=== PATIENT | male | born 1970 | race Caucasian/White ===

== ENCOUNTER 2016-08-13 20:03 | Emergency (ER) | payer MEDICAID, MEDICARE ==
[~2016-08-13] VITALS: Ht 165.1 cm; Wt 86.3 kg
[~2016-08-13 20:03] MED LIST: ASPI500T8 PO; ATEN25TA PO; CALC-72 PO; CALC0.257 PO; CELE200C PO; CELE50CA PO; CHOL500050 PO; ENOX40DI8 SUBQ; HYDR25TA4 PO; LEVO750T9 PO; METH750T3 PO; OXYC1TAB24 PO; flaxseed oil
[2016-08-13 20:04] VITALS: BP 152/90; PULSE 88; RESP 20; O2SAT 96
[2016-08-13 20:21] LABS: BASOPHILS % (AUTO) 0.3 % (0-3); EOSINOPHILS % (AUTO) 3.2 % (0-5); MONOCYTES % (AUTO) 12.1 % (4-12); Mean Corpuscular Hemoglobin 32.3 pg (27.0-35.0); Mean Corpuscular Volume 90.5 fL (81-100); NEUTROPHILS % (AUTO) 54.2 % (40-74); Platelet Count 141 bil/L (150-400)
[2016-08-13 20:47] LABS: TROPONIN T < 0.010 ug/L (0.0-0.011)
--- NOTE | 2016-08-13 21:09 | ED.REPORT ---
HPI-Chest Pain 40 and Over Date of Service Aug 13, 2016 ED Provider: Jerry Dominguez MD 46 year old male with a history of cardiac catheterization, GERD, HTN, and family history of MD on his father's side presents to the ER via EMS complaining of months of tight, substernal chest pain, worsening tonight with pain radiating down his left arm while he was eating around 19:00. Pain is exacerbated with deep breaths. Associated symptom of diaphoresis, and dry cough. Patient denies nausea, vomiting, and diarrhea. Nursing Notes Stated Complaint: CHEST PAIN Chief Complaint: Chest Pain Nursing Notes Reviewed: Yes Allergies: Coded Allergies: Sulfa (Sulfonamide Antibiotics) (Verified Allergy, Severe, seizure, ) Scheduled ([flaxseed oil]) 1,000 MG DAILY Aspirin EC (Aspirin EC) 500 Mg Tablet.dr 325 MG PO BID Atenolol (Atenolol) 25 Mg Tablet 25 MG PO DAILY Calcitriol (Rocaltrol) 0.25 Mcg Capsule 0.5 MCG PO DAILY Calcium Carbonate/Vitamin D3 (Calcium 500 + Vit D 200 Tablet) 1 Each Tablet 1 EACH PO TID Celecoxib (Celebrex) 50 Mg Capsule 50 MG PO DAILY Celecoxib (Celebrex) 200 Mg Capsule 200 MG PO DAILY 200 mg daily for 14 days for 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 Cholecalciferol (Vitamin D3) (Vitamin D3) 50,000 Unit Capsule 50,000 UNIT PO WEEKLY Enoxaparin Sodium (Enoxaparin Sodium) 40 Mg/0.4 Ml Syringe 40 MG SUBQ Q24 Lovenox 40 mg subcutaneous daily for 18 days. ASA 325 mg EC by mouth twice a day for additional 3 weeks. Hydrochlorothiazide (Hydrochlorothiazide) 25 Mg Tablet 25 MG PO DAILY Levofloxacin (Levaquin) 750 Mg Tablet 750 MG PO DAILY Omeprazole (Omeprazole) 20 Mg Tablet.dr 20 MG PO BID Scheduled PRN Methocarbamol (Methocarbamol) 750 Mg Tablet 750 MG PO HS PRN PRN For Spasm oxyCODONE-Acetaminophen 5-325 mg (oxyCODONE-Acetaminophen 5-325 mg) 1 Each Tablet 1-2 TAB PO Q4-6H PRN PRN For Severe Pain General Time Seen by MD: 21:08 Chief Complaint Chest pain Hx Obtained From: Patient Arrived By: Ambulance Sudden in Onset?: No Onset Occurred: Onset unknown ("months") Symptom Duration: Intermittent Location: : Substernal Quality: Pressure Radiation: : Arm left Severity: Current: Moderate Severity: Maximum: Moderate Associated with: Reports: Cough, non-productive, Diaphoresis, Shortness of Breath, Denies: Nausea, Vomiting Pertinent Negative: Pt denies other symptoms Similar Sx Previous: Yes Past Medical History Past Medical History history of seizures Reports: GERD, Hypertension Past Surgical History Hernia R hip arthroscopy R hip replacement 02/23 Cardiac catheterization Reports: Appendectomy, Cataract surgery Smoking History Never Smoker Social History previous alcohol use, hasn't consumed alcohol in over a month Alcohol Use: >5 per day Drug Use: Denies drug use Other Social History: Lives alone Ambulatory Status Independent Review of Systems Constitutional: Denies: Chills, Fever Respiratory: Reports: Non-productive cough Cardiovascular: Reports: Chest pain GI: Denies: Diarrhea, Nausea, Vomiting Musculoskeletal: Reports: Extremity pain (left arm), Denies: Neck pain Skin: Reports Diaphoresis Complete sys rev & neg: except as marked. Physical Exam Initial Vital Signs Vital Signs (First) Date Time Temp Pulse Resp B/P Pulse Ox O2 Delivery O2 Flow Rate FiO2 08/13/16 20:04 36.7 88 20 152/90 96 Nasal Cannula 2 Initial VS: Reviewed Head / Eyes: Atraumatic, Normocephalic Neck: Supple, Non-tender, Full range of motion Extremities: Vascular intact, Neuro intact, No swelling, No tenderness Neurologic: Alert, Oriented, Nonfocal General/Constitutional: Awake, Alert, Well developed, Well nourished Respiratory / Chest: Breath sounds NL, Breath sounds = bilat, No respiratory distress, No rales, No rhonchi, No wheezing, No stridor, No chest tenderness Cardiovascular: Heart rate NL, Regular rhythm, Heart sounds NL, No murmurs, Peripheral circulation NL, Pulses = bilaterally, No gross BP differential Abdomen: Soft, Non-tender, No guarding, No rebound, No distention Skin: Atraumatic, Color NL, No rash, Warm, Dry, Intact Interpretation & Diagnostics Lab Results Interpretation Result Diagram: 08/13/16201208/13/16 2013 Test 08/13/16 20:00 08/13/16 20:13 08/13/16 23:08 Hold Purple Top Tube Received (Received) Prothrombin Time 9.5sec (8.1-12.5) Prothromb Time International Ratio 0.89ratio Activated Partial Thromboplast Time 27.3sec (22.8-33.0) D-Dimer 1.94mg/L FEU (<0.50) Hold Blue Top Tube Received (Received) Hold Red Top Tube Received (Received) Hold Townsend Top Tube Received (Received) White Blood Count 7.7th/mm3 (3.8-10.1) Red Blood Count 4.55mil/mm3 (4.40-5.80) Hemoglobin 14.7g/dL (13.8-17.2) Hematocrit 41.2% (41.0-50.0) Mean Corpuscular Volume 90.5fL (81-100) Mean Corpuscular Hemoglobin 32.3pg (27.0-35.0) Mean Corpuscular Hemoglobin Concent 35.7% (32.0-37.0) Red Cell Distribution Width 14.0% (12.3-15.4) Platelet Count 141bil/L (150-400) Neutrophils (%) (Auto) 54.2% (40-74) Lymphocytes (%) (Auto) 29.8% (14-46) Monocytes (%) (Auto) 12.1% (4-12) Eosinophils (%) (Auto) 3.2% (0-5) Basophils (%) (Auto) 0.3% (0-3) Sodium Level 134mEq/L (134-144) Potassium Level 2.9mEq/L (3.5-5.2) Chloride Level 92mEq/L (97-108) Carbon Dioxide Level 20mmol/L (18-29) Blood Urea Nitrogen 13mg/dL (6-24) Creatinine 0.85mg/dL (0.76-1.27) Estimat Glomerular Filtration Rate 102mL/min (>59) Glucose Level 117mg/dL (60-99) Calcium Level 8.2mg/dL (8.5-10.1) Magnesium Level 2.0mg/dL (1.6-2.6) Total Bilirubin 0.4mg/dL (0.0-1.2) Aspartate Amino Transf (AST/SGOT) 31U/L (0-50) Alanine Aminotransferase (ALT/SGPT) 32U/L (0-44) Alkaline Phosphatase 107U/L (25-150) Total Protein 8.0g/dL (6.4-8.4) Albumin 4.5g/dL (3.4-5.0) Troponin T 0.010ug/L (0.0-0.011) ECG Interpretation ECG Interpretation: Minimal nonspecific changes Time: 21:18 Interpreted by: ED physician ECG Interpretation: Sinus rhythm, rate 60 Abnormal T Lead placement differences Time: 01:43 Interpreted by: ED physician X-Ray Chest Interpretation Chest Xray Interpretation: IMPRESSION: No acute pulmonary process. Dictated by: Briana Stokes M.D. on 08/13/2016 at 21:07 Approved by: Briana Stokes M.D. on 08/13/2016 at 21:09 View: Portable, 1 view Interpretation / Wet Read by: Interpret - Radiologist CT Chest Interpretation CONCLUSION: No evidence of pulmonary embolism or dissection. Diffuse idiopathic skeletal hyperostosis of the thoracic spine. Mild calcification at the origin of the left anterior descending coronary artery. Electronically signed by Cherry Wilburn MD Study type: CT pulm angiogram Interpretation / Wet Read by: Interpret - Radiologist Re-Eval/Medical Decision Med Decision/Clinical Course 46-year-old presents with chest discomfort over 3-4 days' time. It is pleuritic and positional in character. EKG is nonacute and only changes noted are the result of lead placement differences. Troponins are negative 2. D-dimer was elevated and CT angiogram was negative. Suspect esophageal origin versus pleurisy. Discharged in stable condition for follow-up with PCP. Stress testing advised. Source of Hx: Old records Time of Eval: 01:45 Re-Evaluation/Progress Note: Discussed lab and imaging results and plan to discharge. Patient is amenable to the plan. Return precautions given. All other questions addressed. Counseled Regarding: Diagnosis, Lab results, Need for follow-up, When/why to return to ED Discharge & Departure Primary Impression: Non-cardiac chest pain Additional Impression: Esophagitis Disposition: Home Discharge Condition All VS Reviewed: Yes Condition: Stable Patient Instructions: Chest Pain (ED) Additional Instructions: Your labs and x-ray and CAT scan are reassuring. We have no evidence of dangerous pathology to explain your pain. I suspect this is from your esophagus (swallowing tube). Begin omeprazole twice daily for a week and then daily after that. Follow-up with your doctor in the office. You should have a stress test arranged by your doctor in the next two weeks. Return any time for worsening symptoms or new symptoms of concern. Referrals: Liz Menendez PA-C (PCP) Scribe Attestation Portions of this note were transcribed by Smith Deluca. I, Dr. Dominguez, personally performed the history, physical exam and medical decision-making; I reviewed and confirmed the accuracy of the information in the transcribed note. Signed by: Marilyn Corley. 08/14/2016 - 01:45 copies to: iLz Menendez PA-C, Christopher W MD Aug 13, 2016 21:08 SMITH DELUCA Aug 13, 2016 21:16
--- NOTE | 2016-08-13 21:10 | DRSVH ---
PROCEDURE: X-RAY CHEST ONE VIEW, PORTABLE ([id number]) INDICATIONS: CHEST PAIN TECHNIQUE: One view of the chest was acquired. COMPARISON: [facility], CR, XR CHEST 2VW, 08/27/2015, 19:46. FINDINGS: Surgical changes and devices: None. Lungs and pleura: No pleural effusions or pneumothorax. Lungs are clear. Mediastinum: Mediastinal contours appear normal. Heart size is normal. Bones and chest wall: No suspicious bony lesions. Overlying soft tissues appear unremarkable. IMPRESSION: No acute pulmonary process. Dictated by: Briana Stokes M.D. on 08/13/2016 at 21:07 Approved by: Briana Stokes M.D. on 08/13/2016 at 21:09
[2016-08-13] MEDS ORDERED: Pantoprazole 4 mg/mL 10 mL Inj IVPUSH ONE (21:30)
[2016-08-13 21:45] LABS: D-Dimer 1.94 mg/L FEU (<0.50); INR 0.89 ratio
[2016-08-13 21:50] VITALS: BP 143/83; PULSE 75; RESP 10; O2SAT 97
[2016-08-14 01:14] VITALS: BP 125/61; PULSE 61; RESP 18; O2SAT 99
[2016-08-14] MEDS ORDERED: OMEP20TA86 PO (01:30)
[2016-08-14 02:48] VITALS: BP 125/61; PULSE 61; RESP 18; O2SAT 99
--- NOTE | 2016-08-14 10:36 | DRSVH ---
PROCEDURE: CT ANGIO CHEST PULMONARY EMBOLISM ([id number]) INDICATIONS: 46-year-old male with shortness of breath, chest pain, and elevated D-dimer level. TECHNIQUE: After the administration of intravenous contrast, 2 mm thick sections acquired from the pulmonary [facility] [place] to the posterior costophrenic angles. 3-dimensional maximum intensity projection (MIP) coronal a nd sagittal reformats were then acquired through the thorax. For radiation dose reduction, the follo wing was used: automated exposure control, adjustment of mA and/or kV according to patient size. COMPARISON: [facility], CT, CT ABD PELVIS W CON, 02/29/2016, 18:18. FINDINGS: Preliminary interpretation rendered by [facility]. Image quality: Excellent. Pulmonary arteries: Pulmonary arteries are normal in size, and demonstrate no intraluminal filling d efects to suggest central pulmonary embolism. Lungs and pleura: Lungs are clear, except for 4 mm posterior right lung base nodule on axial image 4 6, obscured by right lung base atelectasis on February 2016 comparison study. No pleural effusions or pneumothorax. Central and peripheral airways are patent. Mediastinum: Heart size is normal, without pericardial effusion. No mediastinal or hilar adenopathy . Thoracic aorta is normal in caliber and enhancement. Esophagus is normal in caliber, without hiat al hernia. Bones and chest wall: No suspicious bony lesions. Ribs and thoracic spine appear intact throughout. There is thoracic spine diffuse idiopathic skeletal hyperostosis. Thyroid gland is normal in size. No axillary or supraclavicular adenopathy. Abdomen: Visualized upper abdominal solid organs appear normal in the early arterial phase of enhanc ement. IMPRESSION: 1. No evidence for central pulmonary embolism. 2. 4 mm posterior right lung base nodule is indeterminate, with the region of interest obscured by a telectasis on comparison CT scan. 2017 revised Fleischner society criteria guidelines would recommen d 1 year followup non contrast chest CT if patient has risk factors for lung carcinoma. Dictated by: Octaviano Beasley M.D. on 08/14/2016 at 10:27 Approved by: Octaviano Beasley M.D. on 08/14/2016 at 10:35
== END 2016-08-14 02:40 | disposition home or self-care (01) ==
LOC: SED 20:03
DX: R07.89 Other chest pain (principal); K20.9 Esophagitis, unspecified; I10 Essential (primary) hypertension; K21.9 Gastro-esophageal reflux disease without esophagitis; I25.2 Old myocardial infarction; Z79.82 Long term (current) use of aspirin; Z88.2 Allergy status to sulfonamides
CPT/HCPCS: 36415; 71010; 71275; 80053; 83735; 84484; 85025; 85378; 85610; 85730; 93005; 96374; 96375; 99285; J1885; Q9967

== ENCOUNTER 2016-08-22 04:10 | Emergency (ER) | payer MEDICAID, MEDICARE ==
[~2016-08-22] VITALS: Ht 165.1 cm; Wt 86.4 kg
[~2016-08-22 04:10] MED LIST changes: +OMEP20TA86 PO
[2016-08-22 04:29] VITALS: BP 157/91; PULSE 79; RESP 18; O2SAT 98
--- NOTE | 2016-08-22 06:31 | ED.REPORT ---
HPI-Rash / Abscess Date of Service Aug 22, 2016 ED Provider: Arron Weller MD 46 year old male presents to the ER complaining of a month of itching rash to the bilateral lower extremities. Rash is also present on the elbows and scalp. Patient denies fever, and history of psoriasis or DM. Symptoms have been treated with "creams, ointments, and sprays" with no relief. History of similar , treated successfully with IV antibiotics, and he requests the same today. He is a poor historian. Nursing Notes Stated Complaint: RASH Chief Complaint: Skin Rash/Abscess Nursing Notes Reviewed: Yes Allergies: Coded Allergies: Sulfa (Sulfonamide Antibiotics) (Verified Allergy, Severe, seizure, ) Scheduled ([flaxseed oil]) 1,000 MG DAILY Aspirin EC (Aspirin EC) 500 Mg Tablet.dr 325 MG PO BID Atenolol (Atenolol) 25 Mg Tablet 25 MG PO DAILY Calcitriol (Rocaltrol) 0.25 Mcg Capsule 0.5 MCG PO DAILY Calcium Carbonate/Vitamin D3 (Calcium 500 + Vit D 200 Tablet) 1 Each Tablet 1 EACH PO TID Celecoxib (Celebrex) 50 Mg Capsule 50 MG PO DAILY Celecoxib (Celebrex) 200 Mg Capsule 200 MG PO DAILY 200 mg daily for 14 days for 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 Cholecalciferol (Vitamin D3) (Vitamin D3) 50,000 Unit Capsule 50,000 UNIT PO WEEKLY Enoxaparin Sodium (Enoxaparin Sodium) 40 Mg/0.4 Ml Syringe 40 MG SUBQ Q24 Lovenox 40 mg subcutaneous daily for 18 days. ASA 325 mg EC by mouth twice a day for additional 3 weeks. Hydrochlorothiazide (Hydrochlorothiazide) 25 Mg Tablet 25 MG PO DAILY Levofloxacin (Levaquin) 750 Mg Tablet 750 MG PO DAILY Omeprazole (Omeprazole) 20 Mg Tablet.dr 20 MG PO BID Prednisone (PredniSONE) 10 Mg Tablet 10 MG PO DAILY Take 60mg x 5 days, then 40mg x 5 days then 20mg x5 days then 10mg x 5 days. Quantity sufficient Triamcinolone Acetonide (Triamcinolone Acetonide Ointment) 80 Gm Oint...g. 1 APPLIC TOP BID Scheduled PRN Methocarbamol (Methocarbamol) 750 Mg Tablet 750 MG PO HS PRN PRN For Spasm oxyCODONE-Acetaminophen 5-325 mg (oxyCODONE-Acetaminophen 5-325 mg) 1 Each Tablet 1-2 TAB PO Q4-6H PRN PRN For Severe Pain General Time Seen by MD: 06:06 Chief Complaint Rash Hx Obtained From: Patient Arrived By: Walk-in Onset Occurred: More than a week ago... (1 month) Symptom Duration: Since onset Location: : Lower extremity: Scalp Quality: Itching Severity: Current: Moderate Severity: Maximum: Moderate Associated with: Denies Fever Pertinent Negative: Pt denies other symptoms Similar Sx Previous: Yes Past Medical History Past Medical History Notes: Patient seen in ED 08/13/16 for CP Past Medical History history of seizures (at age 14) idiopathic hypoparathyroid w/ho hypocalcemia Reports: GERD, Hypertension Past Surgical History Hernia R hip arthroscopy R hip replacement 02/23 Cardiac catheterization Reports: Appendectomy, Cataract surgery Smoking History Never Smoker Social History previous alcohol use, hasn't consumed alcohol in over a month Alcohol Use: >5 per day Drug Use: Denies drug use Other Social History: Lives alone Ambulatory Status Independent Review of Systems Constitutional: Denies: Chills, Fever Respiratory: Denies: Non-productive cough GI: Denies: Diarrhea, Nausea, Vomiting Skin: Reports Itching, Reports Rash Allergy / Immune: Denies: Allergic reaction, Anaphylaxis Complete sys rev & neg: except as marked. Physical Exam Initial Vital Signs Vital Signs (First) Date Time Temp Pulse Resp B/P Pulse Ox O2 Delivery O2 Flow Rate FiO2 08/22/16 04:29 36.8 79 18 157/91 98 Room Air Initial VS: Reviewed, Vital signs normal Head / Eyes: Atraumatic, Normocephalic Neck: Supple, Non-tender, Full range of motion Respiratory: Breath sounds normal, Clear to auscultation, No respiratory distress Cardiovascular: Regular rate & rhythm, Heart sounds normal, Intact distal pulses Abdomen / GI: Soft, Non-tender, No guarding, No rebound, No distention Extremities: Vascular intact, Neuro intact, No swelling, No tenderness Neurologic: Alert, Oriented, Nonfocal General/Constitutional: Awake, Alert, Well developed Skin: Warm, Dry, Intact Color / Condition: Positive: Rash present Rash / Lesion Notes: Psoriatic rash worse in lower extremities involving face and elbows. Dry scaling skin. No sign of cellulitis or secondary infection. Rash / Lesion Location: Positive: Elbow L, Elbow R, Face, Leg L, Leg R Re-Eval/Medical Decision Med Decision/Clinical Course This is a 46-year-old male presents requesting an IV antibiotics for rash. The past month as well rash in his chest, elbows, and legs-and reports she has been taking an unknown medicine has not helped. Yesterday thinking that he has an infection and requesting antibiotics. However, the patient denies fever, pain- his chief complaint is terrible itching with the rash and the appearance. On exam, the patient is afebrile and nontoxic and generally well-appearing. But he does have a psoriatic, scaling rash that involves the chest, elbows, and most pronounced on the lower extremities but the feet and ankles and proximal legs. I do not appreciate any signs of secondary infection. There are no markers to suggest cellulitis. There are some findings of mild excoriation. I explained to the patient that I am not finding evidence of infection to necessitate antibiotics, but given the severity of his presentation that I do think be reasonable to try a course of steroids which may more likely be beneficial. The patient is initially concerned about this, but on further explanation was quite accepting. The patient received a dose of dexamethasone in the department, is being discharged in all redness of taper, have also written for some triamcinolone ointment. Discharge, medication precautions reviewed. The patient is discharged in stable condition. Source of Hx: Old records Re-Evaluation/Progress : Time of Eval: 06:44 Re-Evaluation/Progress Note: Discussed physical examination findings and plan to discharge. Patient is amenable to the plan. Return precautions given. All other questions addressed. Counseled Regarding: Diagnosis, Need for follow-up, When/why to return to ED Discharge & Departure Impression: Primary Impression: Psoriasis (a type of skin inflammation) Disposition: Home Discharge Condition All VS Reviewed: Yes Condition: Stable Additional Instructions: 1. I do not appreciate findings of cellulitis (the type of infection that would benefit from antibiotics) 2. Instead, I recommend a course of the anti-inflammatory medication steroids that should help. 3. You received 10mg dexamethasone today. 4. Then tomorrow start prednisone in tapered course (Take prednisone 60mg for 5 days, then 40mg for 5 days, then 20mg for 5 days then 10mg for 5 days) 6. Apply triamcinalone 0.1% ointment to rash 1- 2 times a day as needed. 7. Symptoms are expected to be improving with treatment rapidly. The itching should improve rapidly as well. 8. If you develop fever, increasing redness, pain - those are signs of an infection and you should return to the ED. Referrals: Liz Menendez PA-C (PCP) Marilyn Attestation Portions of this note were transcribed by Smith Deluca. I, Dr. Weller, personally performed the history, physical exam and medical decision-making; I reviewed and confirmed the accuracy of the information in the transcribed note. Signed by: Marilyn Corley, 08/22/2016 and 07:08 copies to: Liz Menendez PA-C, Matthew F MD Aug 22, 2016 06:31 SMITH DELUCA Aug 22, 2016 06:40
[2016-08-22] MEDS ORDERED: Dexamethasone 20 mg/2 mL Oral Solution PO ONE (06:45)
[2016-08-22] MEDS ORDERED: PRE10 PO (06:57)
[2016-08-22] MEDS ORDERED: TRIA80OI TOP (06:57)
== END 2016-08-22 07:06 | disposition home or self-care (01) ==
LOC: SED 04:10
DX: L40.9 Psoriasis, unspecified (principal); K21.9 Gastro-esophageal reflux disease without esophagitis; I10 Essential (primary) hypertension; Z87.2 Personal history of diseases of the skin and subcutaneous tissue; Z79.82 Long term (current) use of aspirin; Z88.2 Allergy status to sulfonamides